=== PATIENT | male | born 1940 | race Caucasian/White ===

== ENCOUNTER 2018-10-14 17:10 | Emergency (ER) | payer MEDICARE, OTHER ==
[2018-10-14] MEDS ORDERED: MORPHINE SULFATE 10 MG/ML INJ IV PRN (19:09)
--- NOTE | 2018-10-14 19:14 | ER Document Report ---
ED General - General Chief Complaint: Abdominal Pain Stated Complaint: WEAKNESS Time Seen by Provider: 10/14/18 18:32 Primary Care Provider: NIKKO LUCAS FNP [Primary Care Provider] - Follow up as needed Notes: Patient is a 78-year-old male with past medical history of essential hypertension, history of prostate cancer in the remote past status post prostatectomy who presents with 12 hours of right flank, right mid abdomen and right lower abdominal pain. Patient states that the pain started this morning after waking up and has been a severe, stabbing pain to the affected area. He notes that moving, coughing worsens the pain. Nothing improves the pain. States that he did not have these symptoms last night so they started abruptly this morning and have been ongoing since that time. He denies any history of similar pain in the past. He went to an urgent care and was referred to the emergency department due to concerns of hypertension as well as undifferentiated nature of his presentation. The patient does not regularly visit with a physician. He denies chest pain, shortness of breath, fever or constitutional symptoms. The patient does also note that for the past 2-3 weeks he has had increasingly prominent swelling of his bilateral lower extremities. Denies any known history of renal failure, hepatic failure or congestive heart failure. - Related Data Allergies/Adverse Reactions: No Known Allergies Allergy (Unverified 10/14/18 18:51) Past Medical History - General Information source: Patient - Social History Smoking Status: Current Every Day Smoker Frequency of alcohol use: None Drug Abuse: None Lives with: Alone Family History: Reviewed & Not Pertinent Patient has suicidal ideation: No Patient has homicidal ideation: No Renal/ Medical History: Denies: Hx Peritoneal Dialysis Review of Systems - Review of Systems Notes: Constitutional: Negative for fever. HENT: Negative for sore throat. Eyes: Negative for visual changes. Cardiovascular: Negative for chest pain. Respiratory: Negative for shortness of breath. Gastrointestinal: Positive for abdominal and flank pain. Genitourinary: Negative for dysuria. Musculoskeletal: Positive for right low back pain Skin: Negative for rash. Neurological: Negative for headaches, weakness or numbness. 10 point ROS negative except as marked above and in HPI. Physical Exam - Vital signs Vitals: Temp Resp BP Pulse Ox 98.4 F 23 H 161/101 H 94 10/14/18 17:25 10/14/18 17:25 10/14/18 17:25 10/14/18 17:25 Interpretation: Hypertensive Notes: PHYSICAL EXAMINATION: GENERAL: Appears quite uncomfortable but in no overt distress HEAD: Atraumatic, normocephalic. EYES: Pupils equal round and reactive to light, extraocular movements intact, sclera anicteric, conjunctiva are normal. ENT: nares patent, oropharynx clear without exudates. Moderately dry mucous membranes. NECK: Normal range of motion, supple without lymphadenopathy LUNGS: Breath sounds clear to auscultation bilaterally and equal. Faint wheezing at the bases bilaterally HEART: Regular rate and rhythm without murmurs ABDOMEN: Soft, nondistended abdomen. Bowel sounds present. There is no specific localization of pain on the abdomen itself beyond mildly to the right upper quadrant. No focal tenderness the right lower quadrant. No areas of rebound or guarding. There is exquisite tenderness on palpation of the right flank and right mid nohemi-lumbar spinal region. EXTREMITIES: Normal range of motion, 3+ pitting edema in the bilateral lower extremities that is equal and symmetric. NEUROLOGICAL: No focal neurological deficits. Moves all extremities spontaneously and on command. PSYCH: Moderately anxious. SKIN: Warm, Dry, normal turgor, no rashes or lesions noted. Course - Re-evaluation Re-evalutation: 10/14/18 19:12 Presentation of an overall moderately ill-appearing 78-year-old male with complaints of right flank and right sided abdominal pain as well as bilateral lower extremity edema. Broad differential given mixed clinical picture although I am generally concerned that there is very clinically significant pathology given the patient's bilateral lower extremity edema, the acuity of onset of his pain as well as his advanced age. Primary considerations at this point include pulmonary embolus, possible biliary pathology although this seems much less likely, intra-abdominal mass, IVC occlusion or mixture of these variance. Because I am concerned about multiple life threatening etiologies will proceed with a very broad workup including CT of the chest abdomen and pelvis as well as as labs, urinalysis. Will reassess after results of the studies have been completed. 10/14/18 22:41 Thankfully patient's workup is much better than I was worried it would be. He does have some incidental findings of a 3 cm abdominal aneurysm as well as iliac artery dilation. Patient is a smoker, untreated hypertensive and admits that he does not usually follow with physicians. I had an extended conversation with the patient about the need to follow-up with his primary care physician regarding these findings and the need for regular follow-up for the now diagnosed abdominal aneurysm. We have also reviewed the need to discontinue smoking and I have prescribed him lisinopril for his blood pressure. Patient has had resolution of his abdominal discomfort. At this time will discharge with return precautions and follow-up recommendations. Verbal discharge instructions given a the bedside and opportunity for questions given. Medication warnings reviewed. Patient is in agreement with this plan and has verbalized understanding of return precautions and the need for primary care follow-up in the next 24-72 hours. - Vital Signs Vital signs: Temp Pulse Resp BP Pulse Ox 98.4 F 12 153/109 H 91 L 10/14/18 17:25 10/14/18 21:00 10/14/18 20:08 10/14/18 21:00 - Laboratory Result Diagrams: 10/14/18 16:45 10/14/18 19:20 Laboratory results interpreted by me: 10/14/18 10/14/18 10/14/18 16:45 19:20 20:55 RBC 4.28 L MCV 99 H MCH 34.1 H RDW 14.4 H Seg Neutrophils % 79.2 H Lymphocytes % 11.1 L AST 67 H Urine Ketones 20 H Urine Blood SMALL H - Diagnostic Test Radiology reviewed: Reports reviewed Discharge - Discharge Clinical Impression: Bilateral lower extremity edema, Abdominal aneurysm without mention of rupture, Iliac artery aneurysm, bilateral, Tobacco abuse Abdominal pain Qualifiers: Abdominal location: generalized Qualified Code(s): R10.84 - Generalized abdominal pain Condition: Good Disposition: HOME, SELF-CARE Additional Instructions: As we discussed today there are several items that need to be followed up by her primary care physician. Your testing from today is included in your paperwork. Specifically you need to follow-up with your primary care doctor for monitoring of a now diagnosed abdominal aneurysm as well as iliac artery aneurysms. You also need to follow-up regarding the swelling in your legs. Wear the compression stockings that have been provided 12 hours daily. Return if you develop worsening of your pain, persistent vomiting, fever greater 100.4 F or any other symptoms that are worrisome to you. Please take the lisinopril that is been prescribed. I encouraged you to stop smoking. Prescriptions: Lisinopril [Prinivil 10 mg Tablet] 10 mg PO DAILY #30 tablet Referrals: NIKKO LUCAS, [employer] [Primary Care Provider] - Follow up in 3-5 days
[2018-10-14 19:21] LABS: ABSOLUTE LYMPHOCYTES (AUTO) 0.9 10^3/uL (0.5-4.7); ABSOLUTE MONOCYTES (AUTO) 0.7 10^3/uL (0.1-1.4); ABSOLUTE NEUT (AUTO) 6.2 10^3/uL (1.7-8.2); BASOPHILS % (AUTO) 0.5 % (0-2); EOSINOPHILS % (AUTO) 0.4 % (0-6); HEMATOCRIT 42.4 % (37.9-51.0); HEMOGLOBIN 14.6 g/dL (13.5-17.0); LYMPHOCYTES % (AUTO) 11.1 % (13-45); MEAN CORPUSCULAR HEMOGLOBIN 34.1 pg (27.0-33.4); MEAN CORPUSCULAR HGB CONC 34.5 g/dL (32.0-36.0); MEAN CORPUSCULAR VOLUME 99 fl (80-97); MONOCYTES % (AUTO) 8.8 % (3-13); PLATELET COUNT 207 10^3/uL (150-450); RED BLOOD COUNT 4.28 10^6/uL (4.35-5.55); RED CELL DISTRIBUTION WIDTH 14.4 % (11.5-14.0); SEGMENTED NEUTROPHILS % (AUTO) 79.2 % (42-78); TOTAL CELLS COUNTED % (AUTO) 100 %; WHITE BLOOD COUNT 7.9 10^3/uL (4.0-10.5)
[2018-10-14 19:24] LABS: INTERNATIONAL RATION (INR) 0.95; PARTIAL THROMBOPLASTIN TIME 28.9 SEC (23.5-35.8); PROTHROMBIN TIME 13.1 SEC (11.4-15.4)
[2018-10-14 19:48] LABS: ALANINE AMINOTRANSFERASE 49 U/L (21-72); ALBUMIN 4.2 g/dL (3.5-5.0); ALKALINE PHOSPHATASE 57 U/L (38-126); ANION GAP 9 (5-19); ASPARTATE AMINO TRANSFERASE 67 U/L (17-59); BILIRUBIN,DIRECT 0.2 mg/dL (0.0-0.4); BILIRUBIN,TOTAL 1.3 mg/dL (0.2-1.3); BLOOD UREA NITROGEN 12 mg/dL (7-20); CALCIUM 9.5 mg/dL (8.4-10.2); CARBON DIOXIDE 28 mmol/L (22-30); CHLORIDE 101 mmol/L (98-107); GLUCOSE 78 mg/dL (75-110); LIPASE 198.4 U/L (23-300); POTASSIUM 4.2 mmol/L (3.6-5.0); SODIUM 138.2 mmol/L (137-145); TOTAL PROTEIN 6.9 g/dL (6.3-8.2)
[2018-10-14 20:00] LABS: NT PRO BNP 403 pg/mL (<450)
[2018-10-14 20:02] LABS: TROPONIN I < 0.012 ng/mL
--- NOTE | 2018-10-14 20:49 | RADIOLOGY REPORT (SQ) ---
EXAM DESCRIPTION: CT CHEST ANGIOGRAPHY WITHOUT THEN WITH IV CONTRAST, three-dimensional reconstructions COMPLETED DATE/TME: 10/14/2018 19:08 CLINICAL HISTORY: 78 years, Male, pleuritic pain, tachycardia This exam was performed according to our departmental dose-optimization program which includes automated exposure control, adjustment of the mA and/or kVp according to patient size and/or use of iterative reconstruction technique where applicable. FINDINGS: Pulmonary arteries are well opacified with no significant filling defects in the pulmonary arterial tree to suggest acute pulmonary embolism. Aorta is mildly calcified without aneurysm. No significant mediastinal, hilar or axillary lymphadenopathy. Moderate coronary artery calcification. No pericardial or pleural effusion. The visualized upper abdominal organs are unremarkable. Evaluation of the lung parenchyma demonstrates trachea and major airways to be patent. No suspicious lung nodules or masses. No consolidations to suggest pneumonia. IMPRESSION: No acute disease. No evidence for acute pulmonary embolism.
[2018-10-14 21:18] LABS: APPEARANCE,URINE CLEAR; BILIRUBIN,URINE NEGATIVE (NEGATIVE); COLOR,URINE YELLOW; GLUCOSE, URINE NEGATIVE (NEGATIVE); KETONES,URINE 20 mg/dL (NEGATIVE); LEUKOCYTE ESTERASE,URINE NEGATIVE (NEGATIVE); NITRITE,URINE NEGATIVE (NEGATIVE); PROTEIN,URINE NEGATIVE (NEGATIVE); URINE SPECIFIC GRAVITY 1.023; UROBILINOGEN,URINE NEGATIVE mg/dL (<2.0)
--- NOTE | 2018-10-14 22:17 | RADIOLOGY REPORT (SQ) ---
EXAM DESCRIPTION: CT ABDOMEN PELVIS WITH IV CONTRAST COMPLETED DATE/TME: 10/14/2018 19:08 CLINICAL HISTORY: 78 years Male eval abd pain COMPARISON: None. TECHNIQUE: Contiguous axial images obtained through the abdomen and pelvis following IV contrast. Reformatted images obtained. This exam was performed according to our department optimization program which includes automated exposure control, adjustment of the mA and/or kv according to patient size and/or use of iterative reconstruction technique. FINDINGS: Findings in the chest are discussed under a separate dictation heading. Fatty infiltration of the liver. The spleen and pancreas appear unremarkable. No adrenal masses. There are numerous bilateral renal calculi. No hydronephrosis. The gallbladder is visualized. There is diffuse calcification in aorta and its branches. The abdominal aorta is tortuous. The aorta measures 3 cm in maximum dimension. Recommend follow-up every three years. There is dilatation of the common iliac arteries bilaterally, measuring 3.1 cm on the left and 2.9 cm on the right. No bowel obstruction. The appendix is unremarkable. IMPRESSION: Mild dilatation of the abdominal aorta measuring 3 cm. Follow-up is recommended every three years There is aneurysmal dilatation of the common iliac arteries bilaterally measuring 3.1 and 2.9 cm. Fatty liver Findings in the chest are dictated under separate heading Nonobstructing renal calculi bilaterally No additional evidence of acute process
[2018-10-14] MEDS ORDERED: LISINOPRIL 10 MG TABLET PO ONE (22:43)
[2018-10-14 23:42] VITALS: BP 168/105
== END 2018-10-14 23:42 | disposition home or self-care (01) ==
LOC: ER 17:10
DX: R10.84 Generalized abdominal pain (principal); I71.4 Abdominal aortic aneurysm, without rupture; I72.3 Aneurysm of iliac artery; R60.0 Localized edema; R10.811 Right upper quadrant abdominal tenderness; M54.5 Low back pain; I10 Essential (primary) hypertension; Z85.46 Personal history of malignant neoplasm of prostate; F17.200 Nicotine dependence, unspecified, uncomplicated
CPT/HCPCS: 99285; 96374; 36415; 83605; 83690; 85025; 85610; 85730; 80053; 81001; 84484; 83880; 71275; 74177; J2270; A9270